=== PATIENT | female | born 1990 ===

== ENCOUNTER 2018-11-07 18:39 | Emergency (ER) | payer SELFPAY ==
[2018-11-07 18:53] VITALS: BP 144/85
[2018-11-07] MEDS ORDERED: Lidocaine 1% MPF* 2 ML VIAL INJ ONE (19:03)
[2018-11-07] MEDS ORDERED: Lidocaine 1%* 5 ML VIAL INJ ONE (19:05)
[2018-11-07] MEDS ORDERED: Lidocaine 1%* 5 ML VIAL ONE (19:06)
--- NOTE | 2018-11-07 19:41 | ED ---
Laceration/Wound HPI - HPI Summary HPI Summary: Ms Gillis cut her finger on a can of soup just prior to arrival. She is up-to- date with a tetanus about 6 years ago. - History of Current Complaint Stated Complaint: FINGER LAC Time Seen by Provider: 11/07/18 18:55 Hx Obtained From: Patient Hx Last Menstrual Period: 2 weeks ago Mechanism of Injury: Sharp/Blunt Trauma Aggravating: Movement Alleviating: Compression Onset Severity: Mild Current Severity: Mild Pain Intensity: 2 - Allergy/Home Medications Allergies/Adverse Reactions: Allergies Allergy/AdvReac Type Severity Reaction Status Date / Time No Known Allergies Allergy Verified 11/07/18 18:53 Home Medications: Home Medications Control 11/07/18 [History] PMH/Surg Hx/FS Hx/Imm Hx Previously Healthy: Yes Endocrine/Hematology History: Denies: Hx Diabetes, Hx Thyroid Disease Cardiovascular History: Denies: Hx Hypertension Respiratory History: Denies: Hx Asthma, Hx Chronic Obstructive Pulmonary Disease (COPD) GI History: Denies: Hx Ulcer - Surgical History Surgery Procedure, Year, and Place: ACL repair Infectious Disease History: No Infectious Disease History: Denies: Hx Hepatitis, Hx Human Immunodeficiency Virus (HIV), Traveled Outside the [place] in Last 30 Days - Social History Alcohol Use: Occasionally Substance Use Type: Reports: None Smoking Status (MU): Never Smoked Tobacco Review of Systems All Other Systems Reviewed And Are Negative: Yes Physical Exam - Summary Physical Exam Summary: She's got a small cut on the tip of her right index finger volar surface. Triage Information Reviewed: Yes Vital Signs On Initial Exam: Initial Vitals Temp Pulse Resp BP Pulse Ox 97.9 F 71 16 144/85 97 11/07/18 18:50 11/07/18 18:50 11/07/18 18:50 11/07/18 18:50 11/07/18 18:50 Vital Signs Reviewed: Yes Appearance: Positive: Well-Appearing Skin: Positive: Warm Musculoskeletal: Positive: Abnormal @ - 1 cm fingertip laceration. Procedures - Laceration/Wound Repair 1 Location: upper extremity Description: Linear Anesthesia: Local, 1.0%, Lido Length, Depth and Shape: 1 cm Betadine Prep?: No - Hibiclens Laceration/Wound Explored: clean Suture Type: Nylon - 5.0 Number of Sutures: 6 Layer Closure?: No Sterile Dressing Applied?: Yes Diagnostics - Vital Signs Vital Signs Temp Pulse Resp BP Pulse Ox 11/07/18 18:50 97.9 F 71 16 144/85 97 - Laboratory Lab Statement: Any lab studies that have been ordered have been reviewed, and results considered in the medical decision making process. Laceration Repair Course/Dx - Course Course Of Treatment: Fingertip laceration came together well. She thinks she had a tetanus shot 6 years ago which should be sufficient. - Clinical Impression Provider Diagnoses: Laceration of finger of right hand Discharge - Sign-Out/Discharge Documenting (check all that apply): Patient Departure All imaging exams completed and their final reports reviewed: No Studies - Discharge Plan Condition: Stable Disposition: HOME Patient Education Materials: Finger Laceration (ED) Referrals: No Primary Care Phys,NOPCP [Primary Care Provider] - Additional Instructions: Sutures out in 10 - 14 days Your blood pressure was a little high here today. Please check with your PCP. - Billing Disposition and Condition Condition: STABLE Disposition: Home
== END 2018-11-07 19:45 | disposition home or self-care (01) ==
LOC: UCEAST 18:39
DX: S61.210A Laceration without foreign body of right index finger without damage to nail, initial encounter (principal); W45.8XXA Other foreign body or object entering through skin, initial encounter; Y92.9 Unspecified place or not applicable
CPT/HCPCS: 12001; 99201; G0463